=== PATIENT | female | born 1965 | race African-American/Black ===

== ENCOUNTER 2017-04-20 01:14 | Emergency (ER) | payer SELFPAY ==
[~2017-04-20] VITALS: Ht 167.6 cm; Wt 69.0 kg
[2017-04-20 01:18] VITALS: BP 120/70
== END 2017-04-20 04:00 | disposition left against medical advice (07) ==
LOC: ER 01:14
DX: R53.1 Weakness (principal); Z53.21 Procedure and treatment not carried out due to patient leaving prior to being seen by health care provider